=== PATIENT | female | born 1970 | race Caucasian/White ===

== ENCOUNTER 2020-10-22 00:20 | Inpatient (IN) | payer OTHER ==
[~2020-10-22] VITALS: Ht 162.6 cm; Wt 109.8 kg
[2020-10-22 07:58] LABS: HEMOGLOBIN 12.8 gm/dl (12.3-15.3); RED BLOOD COUNT 5.17 M/UL (4.00-5.10); WHITE BLOOD COUNT 15.5 K/UL (4.5-11.0)
[2020-10-22 08:00] LABS: BUN/CREATININE RATIO 31 (0-10)
[2020-10-22] MEDS ORDERED: DOXYCYCLINE MO100 MG PO (16:10)
[2020-10-22] MEDS ORDERED: XYLOCAINE VISC100 ML EXT (16:11)
[2020-10-22] MEDS ORDERED: BUSPIRONE HCL5 MG PO (16:12)
[2020-10-22] MEDS ORDERED: VENTOLIN HFA 66.7 GM INH (16:12)
[2020-10-22] MEDS ORDERED: AMLODIPINE BESY10 MG PO (16:12)
[2020-10-22] MEDS ORDERED: CLONIDINE HCL0.2 MG PO (16:14)
[2020-10-22] MEDS ORDERED: LOSARTAN POTAS100 MG PO (16:14)
[2020-10-22] MEDS ORDERED: HYDROCHLOROTH12.5 MG PO (16:14)
[2020-10-22] MEDS ORDERED: LEVOTHYROXINE50 MCG PO (16:14)
[2020-10-22] MEDS ORDERED: METOPROLOL TART50 MG PO (16:15)
[2020-10-23 03:17] LABS: HEMOGLOBIN 13.1 gm/dl (12.3-15.3); RED BLOOD COUNT 5.01 M/UL (4.00-5.10); WHITE BLOOD COUNT 13.6 K/UL (4.5-11.0)
[2020-10-23 03:31] LABS: BUN/CREATININE RATIO 37 (0-10)
[2020-10-24 03:26] LABS: HEMOGLOBIN 11.7 gm/dl (12.3-15.3); RED BLOOD COUNT 4.58 M/UL (4.00-5.10); WHITE BLOOD COUNT 11.5 K/UL (4.5-11.0)
[2020-10-24 03:49] LABS: BUN/CREATININE RATIO 32 (0-10)
[2020-10-25 03:10] LABS: BUN/CREATININE RATIO 34 (0-10)
[2020-10-25] MEDS ORDERED: FUROSEMIDE40 MG PO (14:24)
[2020-10-25] MEDS ORDERED: OMNICEF 300 MG300 MG PO (14:24)
[2020-10-25] MEDS ORDERED: ASPIRIN EC81 MG PO (14:24)
[2020-10-25] MEDS ORDERED: LOSARTAN POTAS100 MG PO (14:24)
[2020-10-25] MEDS ORDERED: AMLODIPINE BESY10 MG PO (14:24)
[2020-10-25] MEDS ORDERED: METOPROLOL TART50 MG PO (14:24)
--- NOTE | 2020-10-25 20:55 | NUR ---
[facility] WAS CALLED BY PACKAGING INSPECTOR, CHARISSA TABOR RN. [facility] IS HERE. PT TAKEN TO [facility] BY CRISPIN GONZALEZ VIA WHEELCHAIR. PT HAS DISCHARGED INFORMATION WITH HER. IV SITE WAS D/SANJEEV EARLIER. PT IS STABLE, NO DISTRESS OR COMPLAINTS NOTED.
[2020-10-26 08:11] LABS: HBSAG SCREEN Negative (Negative); HEP A AB, IGM Negative (Negative); HEP B CORE AB, IGM Negative (Negative); HEP C VIRUS AB <0.1 (0.0-0.9)
== END 2020-10-25 20:55 | disposition home or self-care (01) | DRG 280 ==
LOC: PROG CARE 00:20
PROVIDERS: Family Medicine; Physician Assistant Medical; ADMIT Internal Medicine
PROC: B24BZZZ Ultrasonography of Heart with Aorta (ICD-10-PCS; principal; 2020-10-22)
DX: I42.7 Cardiomyopathy due to drug and external agent (principal); I21.A1 Myocardial infarction type 2; G92 Toxic encephalopathy; F10.188 Alcohol abuse with other alcohol-induced disorder; Z68.41 Body mass index [BMI] 40.0-44.9, adult; L03.115 Cellulitis of right lower limb; I50.22 Chronic systolic (congestive) heart failure; F15.188 Other stimulant abuse with other stimulant-induced disorder; E66.9 Obesity, unspecified; I27.20 Pulmonary hypertension, unspecified; R73.03 Prediabetes; E03.9 Hypothyroidism, unspecified; R77.8 Other specified abnormalities of plasma proteins; R79.1 Abnormal coagulation profile; F17.210 Nicotine dependence, cigarettes, uncomplicated; D72.829 Elevated white blood cell count, unspecified; I11.0 Hypertensive heart disease with heart failure; J44.9 Chronic obstructive pulmonary disease, unspecified; Z82.49 Family history of ischemic heart disease and other diseases of the circulatory system; Z91.19 Patient's noncompliance with other medical treatment and regimen; Z76.5 Malingerer [conscious simulation]
CPT/HCPCS: ECHO; 36415; 36600; 80048; 80053; 80061; 80074; 82140; 82550; 82553; 82803; 83036; 83735; 83880; 84132; 84484; 85025; 85027; 85610; 85730; 86140; 87040; 93005; 93306; 94664; 94760; A6212; G0378; G0379; J0696; J1644; J1650; J2060; J3486